=== PATIENT | male | born 1950 | race Caucasian/White ===

== ENCOUNTER 2017-09-05 10:09 | Outpatient (CLI) | payer MEDICARE ==
--- NOTE | 2017-09-05 13:33 | ULT ---
RENAL SONOGRAM: 09/05/2017 HISTORY: Acute renal insufficiency. Urinary retention. Bilateral hydronephrosis. COMPARISON: Abdominal ultrasound examination obtained at [facility] on 08/06/2017. FINDINGS: The right kidney measures 14.4 cm x 6.6 cm with the left kidney measuring 13.2 cm x 7.2 cm. There is moderate to severe bilateral hydronephrosis also noted on the prior exam. No obvious renal mass or renal calculus is seen. The urinary bladder is distended with a pre-void urinary bladder volume of 1617.9 mL and a post-void urinary bladder volume of 1561.6 mL. The montero of the urinary bladder do appear mildly thickened, wh ich may be related to a bladder outlet obstruction but cystitis is a possibility. IMPRESSION: 1. Moderate to severe bilateral hydronephrosis, also seen on prior exam. 2. Post-void residual. The urinary bladder montero also appear mildly thickened. Cystitis cannot be entirely excluded based on this exam. Findings could be related to a chronic bladder outlet obstructi on. 3. Tortuous and dilated proximal ureters; however, the entire ureters are not well visualized on thi s exam. While other etiologies for urinary obstruction are possible, given the persistence of promin ent post void residual, bladder outlet obstruction is suggested. Clinical correlation is recommended . POS: PAU
== END 2017-09-05 10:10 | disposition home or self-care (01) ==
LOC: SCSULT 10:09
PROVIDERS: ATTEND Urology
DX: N17.9 Acute kidney failure, unspecified (principal); R33.9 Retention of urine, unspecified; N13.30 Unspecified hydronephrosis; N28.89 Other specified disorders of kidney and ureter; N13.8 Other obstructive and reflux uropathy; N28.82 Megaloureter
CPT/HCPCS: 76770

== ENCOUNTER 2017-09-07 09:19 | Outpatient (CLI) | payer MEDICARE, OTHER ==
[2017-09-07 10:33] LABS: Hemoglobin 7.8 g/dL (14.0-18.0); Mean Corpuscular HGB CONC 31.6 g/dL (32.0-36.0); Mean Corpuscular Hemoglobin 24.9 pg (27.0-31.0); Mean Corpuscular Volume 78.5 fl (80.0-94.0); Mean Platelet Volume 5.6 fL (7.4-10.4); Platelet Count 681 thou/uL (130-400); RBC Distribution Width 16.8 % (11.5-14.5); Red Blood Cell (RBC) Count 3.12 mill/uL (4.70-6.10); White Blood Cell (WBC) Count 8.2 thou/uL (4.8-10.8)
[2017-09-07 10:51] LABS: Anion Gap 15 mmol/L (10-20); BUN (Urea Nitrogen) 40 mg/dL (8.4-25.7); Calc. Creatinine Clearance 0 mL/min (70-130); Calcium 9.4 mg/dL (7.8-10.44); Carbon Dioxide 25 mmol/L (23-31); Chloride 102 mmol/L (98-107); Estimated GFR-MDRD 26; Glucose 137 mg/dL (80-115); Potassium 4.9 mmol/L (3.5-5.1); Sodium 137 mmol/L (136-145)
[2017-09-07 11:01] LABS: INR-International Normal Ratio 1.2; Prothrombin Time 15.2 SEC (12.0-14.7)
[2017-09-07 11:02] LABS: PTT 34.1 SEC (22.9-36.1)
[2017-09-07 14:31] LABS: Bilirubin Negative (Negative); Blood, Urine Negative (Negative); Clarity CLOUDY (Clear); Glucose, Urine (Dipstick) Negative (Negative); Leukocyte Large (Negative); Nitrite Negative (Negative); Protein, Urine (Dipstick) Negative (Neg-Trace); Specific Gravity, Urine 1.007 (1.002-1.036); Urobilinogen 0.2 mg/dL (0.2-1.0)
[2017-09-07 14:33] LABS: Bacteria/HPF Rare-Few HPF (None Seen); Hyaline Casts/LPF 0-3 HYALINE CAST LPF (0-3 Hyaline); Pathc Cast-AUWi Flag 0.14 (0-2.49); RBC/HPF 0-3 HPF (0-3); Squamous Epithelial None Seen HPF (0-3); WBC/HPF 21-50 HPF (0-3)
== END 2017-09-07 09:20 | disposition home or self-care (01) ==
LOC: LABBT 09:19
PROVIDERS: ATTEND Urology
DX: Z01.818 Encounter for other preprocedural examination (principal); N40.1 Benign prostatic hyperplasia with lower urinary tract symptoms; R33.9 Retention of urine, unspecified
CPT/HCPCS: 80048; 81001; 85027; 85610; 85730; 86850; 86900; 86901; 87077; 87086; 87186; 93005; 93010

== ENCOUNTER 2017-10-22 10:23 | Outpatient (CLI) | payer OTHER ==
[2017-10-22 12:23] VITALS: BMI 26.2
[2017-10-22 13:04] LABS: Hemoglobin 11.1 g/dL (14.0-18.0); Mean Corpuscular HGB CONC 31.7 g/dL (32.0-36.0); Mean Corpuscular Hemoglobin 25.9 pg (27.0-31.0); Mean Platelet Volume 6.9 fL (7.4-10.4); Platelet Count 412 thou/uL (130-400); RBC Distribution Width 18.1 % (11.5-14.5); Red Blood Cell (RBC) Count 4.28 mill/uL (4.70-6.10); White Blood Cell (WBC) Count 7.7 thou/uL (4.8-10.8)
[2017-10-22 13:11] LABS: PTT 31.2 SEC (22.9-36.1)
[2017-10-22 13:25] LABS: Anion Gap 10 mmol/L (10-20); BUN (Urea Nitrogen) 37 mg/dL (8.4-25.7); Calc. Creatinine Clearance 65 mL/min (70-130); Calcium 9.5 mg/dL (7.8-10.44); Carbon Dioxide 26 mmol/L (23-31); Chloride 104 mmol/L (98-107); Estimated GFR-MDRD 46; Glucose 116 mg/dL (80-115); Potassium 4.5 mmol/L (3.5-5.1); Sodium 135 mmol/L (136-145)
[2017-10-22 13:26] LABS: INR-International Normal Ratio 1.1; Prothrombin Time 14.5 SEC (12.0-14.7)
== END 2017-10-22 10:24 | disposition home or self-care (01) ==
LOC: LABBT 10:23
PROVIDERS: ATTEND Urology
DX: Z01.818 Encounter for other preprocedural examination (principal); N40.1 Benign prostatic hyperplasia with lower urinary tract symptoms
CPT/HCPCS: 80048; 85027; 85610; 85730; 86850; 86900; 86901; 87077; 87086; 87186

== ENCOUNTER 2017-10-23 10:45 | Observation (INO) | payer OTHER ==
[~2017-10-23 10:45] MED LIST: Dexamethasone 20 MG/5 ML VIAL ONE; Lidocaine 1% PF 5 ML VIAL ONE; Metoclopramide HCl 10 MG/2 ML VIAL ONE; Ondansetron HCl/PF 4 MG/2 ML Vial ONE; PROPOFOL 200 MG/20 ML VIAL ONE; diphenhydrAMINE 50 MG/ML VIAL ONE; ePHEDrine/0.9% NaCl/PF SYRINGE 50 mg/10 ml ONE
[2017-10-23] MEDS ORDERED: Fentanyl 100 MCG/2 ML VIAL ONE (11:38)
[2017-10-23] MEDS ORDERED: cefTRIAXone\\ROCEPHIN 1 GM in Sodium Chloride 0.9% 100 ML IVPB SCH (11:45)
[2017-10-23] MEDS ORDERED: Iothalamate Meglumine 60% 50 ML VIAL FS ONE (11:56)
[2017-10-23] MEDS ORDERED: B & O ONE (11:56)
--- NOTE | 2017-10-23 15:24 | RAD ---
RETROGRADE IVP: Date: 10/23/17 HISTORY: Urinary retention. Acute kidney insufficiency. FINDINGS: Retrograde IVP submitted for interpretation. Three images demonstrate dilatation of the visualized ri ght ureter. There is moderate dilatation of the right intrarenal collecting system. There is dilatati on of the visualized left ureter. Left intrarenal collecting system is not demonstrated. IMPRESSION: Bilateral significant obstructive uropathy, incompletely evaluated. POS: COREY
[2017-10-23] MEDS ORDERED: Oxybutynin 5 MG TAB PO PRN (16:01)
[2017-10-23] MEDS ORDERED: Morphine 4 MG/ML VIAL SLOW IVP PRN ×2 (16:01)
[2017-10-23] MEDS ORDERED: Acetaminophen 500 MG TAB PO PRN (16:01)
[2017-10-23] MEDS ORDERED: Hyoscyamine Sulfate SL 0.125 mg Tablet SL PRN (16:01)
[2017-10-23] MEDS ORDERED: Ondansetron HCl/PF 4 MG/2 ML Vial IVP PRN (16:01)
[2017-10-23] MEDS ORDERED: diphenhydrAMINE 25 MG CAP PO PRN (16:01)
[2017-10-23] MEDS ORDERED: Bisacodyl 10 MG SUPP PR PRN (16:01)
[2017-10-23] MEDS ORDERED: Mag-Al 1200 mg/1200 mg/30 ML UDCUP PO PRN (16:01)
[2017-10-23] MEDS ORDERED: hydrALAZINE 20 MG/ML VIAL SLOW IVP PRN (16:01)
[2017-10-23] MEDS ORDERED: traMADol HCl 50 MG TAB PO PRN (16:04)
[2017-10-23] MEDS: Docusate 100 MG CAP PO SCH (20:31)
--- NOTE | 2017-10-23 21:11 | OP ---
DATE OF PROCEDURE: 10/23/2017 SERVICE: Urology. SURGEON: Luis Alberto Aggarwal MD PREOPERATIVE DIAGNOSES: 1. Benign prostatic hypertrophy with urinary retention. 2. Bilateral hydronephrosis. POSTOPERATIVE DIAGNOSES: 1. Benign prostatic hypertrophy with urinary retention. 2. Bilateral hydronephrosis. PROCEDURE PERFORMED: Transurethral vaporization of the prostate with bilateral retrograde pyelograms . INDICATION FOR PROCEDURE: Mr. Toledo is a 67-year-old white male who presented to [facility] with acute kidney injury with bilateral hydronephrosis and complete urinary retention only voiding small amounts of ur ine. We initially had him start CIC, which he was able to better empty his bladder. We have not fur ther evaluated his kidneys after that point and I recommended that we perform a transurethral vaporiz ation of prostate along with evaluation of the ureters to ensure that there was no obstruction. Risk s and benefits of the surgery were discussed and he has agreed to proceed forward. DESCRIPTION OF PROCEDURE: After identification of armband and verification of consent, the patient w as brought back to the operating room where he underwent general anesthesia with LMA. He was then pl aced in dorsal lithotomy position, prepped and draped in usual sterile fashion. After appropriate ti me-out, a 24-Egyptian bipolar resectoscope sheath with visual obturator was inserted through the urethr a into the patient's bladder. The visual obturator was then switched out for the button plasma elect rode. Vaporization was initially started at the bladder neck and vaporized circumferentially startin g with the median lobe first. Relaxing incisions were made at 5 and 7 on the bladder neck, which sig nificantly opened up the prostate. The intervening tissue was vaporized out. Vaporization was then carried out circumferentially down to near the capsule, but not through it until near the verumontanu m, taking care not to go beyond to avoid damage to the urethral sphincter. Both ureters were in thei r orthotopic location upon completion. Meticulous hemostasis was then performed and upon finishing, some debris was evacuated out the bladder and then the resectoscope removed. This was switched out f or a 22-Egyptian rigid cystoscope, which was then introduced back through the urethra into the bladder. Attention was turned to the right ureteral orifice, which was cannulated with a 5-Egyptian Pollack ca theter and a retrograde pyelogram performed, which demonstrated a slightly dilated distal ureter. Op acification of the mid and proximal ureter were not possible, but the opacified renal pelvis demonstr ated hydronephrosis with pelviectasis. A significant amount of contrast had to be used and it is unc lear whether or not the retrograde itself caused the hydronephrosis or whether or not this was previo usly present. The same was performed on the left side, but unfortunately no opacification of the kid glenda was possible. As such, I felt that since the retrogrades were not clear due to significant contr ast leak around the catheters, I would just get an ultrasound in the morning. Therefore, the bladder was left full and the cystoscope removed. A 22-Egyptian three-way Banegas catheter was then inserted in to the bladder with 30 mL in the balloon and CBI initiated. The patient was then taken out of lithot olga, had a 16-A B&O suppository placed in his rectum and a StatLock applied to the catheter. He was then taken to recovery. SPECIMENS: None. ESTIMATED BLOOD LOSS: Minimal. RETAINED TUBES AND DRAINS: A 22-Egyptian 3-way Banegas catheter with 30 mL of sterile water in the ballo on. DISPOSITION: The patient will be kept in the hospital overnight. We will plan for a renal ultrasoun d in the morning and repeat BMP. So long as he is able to void and his kidney function is not signif icantly deteriorated, I think he can go home with or without a Banegas catheter and further management will be handled on an outpatient basis.
[2017-10-23 22:23] VITALS: BMI 26.9
[2017-10-24 06:07] LABS: #Lymphocytes 1.8 thou/uL (1.20-3.40); #Monocytes 0.6 thou/uL (0.11-0.59); %Basophils 0.2 % (0.0-1.0); %Eosinophils 0.2 % (0.0-10.0); %Lymphocytes 14.1 % (21.0-51.0); %Monocytes 4.7 % (0.0-10.0); %Neutrophils 80.8 % (42.0-75.0); Hemoglobin 10.2 g/dL (14.0-18.0); Mean Corpuscular HGB CONC 33.2 g/dL (32.0-36.0); Mean Corpuscular Hemoglobin 27.7 pg (27.0-31.0); Mean Corpuscular Volume 83.7 fl (80.0-94.0); Mean Platelet Volume 7.3 fL (7.4-10.4); Platelet Count 327 thou/uL (130-400); RBC Distribution Width 17.9 % (11.5-14.5); Red Blood Cell (RBC) Count 3.66 mill/uL (4.70-6.10); White Blood Cell (WBC) Count 12.4 thou/uL (4.8-10.8)
[2017-10-24 06:16] LABS: Anion Gap 12 mmol/L (10-20); BUN (Urea Nitrogen) 36 mg/dL (8.4-25.7); Calc. Creatinine Clearance 61 mL/min (70-130); Calcium 9.2 mg/dL (7.8-10.44); Carbon Dioxide 26 mmol/L (23-31); Chloride 104 mmol/L (98-107); Estimated GFR-MDRD 43; Glucose 195 mg/dL (80-115); Potassium 4.5 mmol/L (3.5-5.1); Sodium 137 mmol/L (136-145)
--- NOTE | 2017-10-24 09:41 | RAD ---
ABDOMEN ONE VIEW: History: 67-year-old male with history of constipation and follow up urinary retention, hydronephrosis and saba al insufficiency to evaluate for residual contrast. FINDINGS: There is considerable solid fecal material mostly in the right and transverse colon. No evidence for significant residual contrast media within the right or left upper renal collecting systems. No overt calculus. IMPRESSION: Extensive solid fecal material. No evidence for residual contrast media within either the right or le ft upper collecting systems. POS: PAU
[2017-10-24 09:44] LABS: Iron 56 ug/dL (65-175); Iron Binding Capacity, Total 246 mcg/dL (261-462)
[2017-10-24] MEDS: Docusate 100 MG CAP PO SCH (09:56)
--- NOTE | 2017-10-24 10:32 | ULT ---
RENAL ULTRASOUND: Date: 10-24-17 Comparison: None. History: 67-year-old male undergoing evaluation for hydronephrosis, chronic urinary tract infection. Technique: Multiplanar grayscale sonographic imaging of the kidneys and urinary bladder obtained. FINDINGS: The right kidney measures 10.8 x 4.8 x 4.2 cm and the left kidney measures 10.8 x 5.0 x 6.1 cm. A 1.0 x 1.0 x 1.2 cm hypoechoic lesion is seen in the peripheral midpole of the right kidney suggesti ng a small cyst. There is a 5 x 6 mm echogenic focus within the midpole of the right kidney which may represent a small stone. The urinary bladder contains a Banegas catheter and is decompressed. There is marked wall thickening or the urinary bladder. No hydronephrosis or mass lesion seen on the left. There is a 8 mm hyperechoic focus in the midpole o f the left kidney which could represent asymmetric fat or an intrarenal calculus. IMPRESSION: 1. No hydronephrosis seen on either side. 2. Urinary bladder contains a Banegas catheter. There is severe/prominent wall thickening of the urinar y bladder, etiology uncertain. Clinical correlation is required. 3. Echogenic foci within both kidneys. POS: PAU
[2017-10-24] MEDS ORDERED: cefTRIAXone\\ROCEPHIN 1 GM in Sodium Chloride 0.9% 100 ML IVPB SCH (13:00)
[2017-10-24 16:52] VITALS: BP 181/91; TEMP 97.6
--- NOTE | 2017-10-24 19:01 | PRG ---
DATE OF SERVICE: 10/24/2017 SUBJECTIVE: The patient states he is doing well. He had no problems overnight. His CBI is now off with clear urine. He denies any bladder spasms, fevers, chills, or chest pain. OBJECTIVE: VITAL SIGNS: Temperature 99.5, pulse 91, respirations 20, blood pressure 132/70, saturation 99% on r oom air. GENERAL: No apparent distress, communicative, and alert. CARDIOVASCULAR: Regular rate and rhythm. CHEST: No increased work of breathing. ABDOMEN: Soft, nontender, nondistended. GENITOURINARY: Banegas catheter in place with CBI off with slightly blood tinged urine. EXTREMITIES: No clubbing, cyanosis, or edema. LABORATORY DATA: On laboratory evaluation, a full set of labs in the [employer] system, which I have r shonwed. Of note, the patient's hemoglobin today is 10.2 with a creatinine of 1.63. His renal ultra sound is currently pending as is his x-rays. ASSESSMENT AND PLAN: A 67-year-old white male with chronic kidney disease with acute kidney injury d ue to bilateral hydronephrosis from chronic urinary retention. He has undergone a transurethral vapo rization of the prostate, postoperative day 1, and is recovering quite well. We will perform a voidi ng trial and have him do his ultrasound and KUB. His creatinine are relatively stable. So long as starr lord is able to void, I think he can be discharged home. If he is not able to void, we will send him ho me with a catheter. Further disposition planning is also going to be based on the results of his alphonse ging testing. I have gone over all of the patient's discharge instructions with him and followup cristiana l be handled on an outpatient basis subsequently.
--- NOTE | 2017-10-25 02:07 | DIS ---
SHORT STAY DISCHARGE SUMMARY DATE OF ADMISSION: 10/23/2017 DATE OF DISCHARGE: 10/24/2017 ADMITTING DIAGNOSES: Benign prostatic hypertrophy with acute kidney injury and chronic kidney diseas e. DISCHARGE DIAGNOSES: Benign prostatic hypertrophy with chronic kidney disease. PROCEDURE PERFORMED: While inpatient is transurethral vaporization of the prostate with bilateral re trograde pyelograms, additional diagnostic studies of KUB and renal ultrasound, this can be found in the scanned portion of the [employer] system. HOSPITAL COURSE: After surgery, please see operative note for details. The patient was placed in ob servation for recovery for continuous bladder irrigation and monitoring. His retrograde pyelograms a re demonstrated some dilation of his kidneys. Therefore, we elected for an ultrasound in the morning . In the morning, the patient underwent a voiding trial with removal of the catheter in the morning time. He went down for a renal ultrasound which demonstrated no hydronephrosis and his KUB demonstra shai no retained contrast. Upon return to the floor, the patient only voided 100 mL with a PVR of [address] a catheter, but prior to the catheter placement, he voided an additional 700 w ith a PVR of 600. The patient had a catheter placed regardless and was discharged home with a cathet er in place. All of his discharge instructions were explained to him prior to discharge. DISPOSITION: Discharged to home with Banegas catheter. DISCHARGE CONDITION: Good. FOLLOWUP: Follow up will be approximately 1 week for a void trial. DISCHARGE INSTRUCTIONS: Can be found in the discharge planning of the [employer] system.
== END 2017-10-24 17:35 | disposition home or self-care (01) ==
LOC: SDC 10:45 → SJJU 17:17
PROVIDERS: ADMIT Urology; ATTEND Urology
PROC: 0V508ZZ Destruction of Prostate, Via Natural or Artificial Opening Endoscopic (ICD-10-PCS; principal; 2017-10-24)
PROC: 0TJB8ZZ Inspection of Bladder, Via Natural or Artificial Opening Endoscopic (ICD-10-PCS; 2017-10-24)
DX: N40.1 Benign prostatic hyperplasia with lower urinary tract symptoms (principal); R33.9 Retention of urine, unspecified; N13.39 Other hydronephrosis; N17.9 Acute kidney failure, unspecified; Z88.5 Allergy status to narcotic agent
CPT/HCPCS: 36415; 51702; 74018; 74420; 76770; 80048; 83540; 83550; 85025; 96365; 96375; C1758; G0378; J0360; J0696; J1100; J1200; J2001; J2405; J2704; J2765; J3010; J7050; Q9961

== ENCOUNTER 2023-07-25 11:26 | Inpatient (IN) | payer MEDICARE, OTHER ==
[~2023-07-25 11:26] MED LIST changes: -Dexamethasone 20 MG/5 ML VIAL ONE; +Iopamidol-370 76% 500 ML MDV (1 ML CHARGE) ONE; -Lidocaine 1% PF 5 ML VIAL ONE; -Metoclopramide HCl 10 MG/2 ML VIAL ONE; -Ondansetron HCl/PF 4 MG/2 ML Vial ONE; -PROPOFOL 200 MG/20 ML VIAL ONE; -diphenhydrAMINE 50 MG/ML VIAL ONE; -ePHEDrine/0.9% NaCl/PF SYRINGE 50 mg/10 ml ONE
[2023-07-25 11:53] LABS: #Eosinphils 0.1 thou/uL (0.0-0.7); #Monocytes 0.5 thou/uL (0.11-0.59); #Neutrophils 8.1 thou/uL (1.40-6.50); %Basophils 0.3 % (0.0-1.0); %Eosinophils 0.5 % (0.0-10.0); %Lymphocytes 13.5 % (21.0-51.0); %Monocytes 5.2 % (0.0-10.0); %Neutrophils 80.1 % (42.0-75.0); Hematocrit 43.4 % (42.0-52.0); Hemoglobin 14.4 g/dL (14.0-18.0); Mean Corpuscular HGB CONC 33.2 g/dL (32.0-36.0); Mean Corpuscular Hemoglobin 28.6 pg (27.0-31.0); Mean Corpuscular Volume 86.3 fl (78.0-98.0); Mean Platelet Volume 9.4 fL (7.4-10.4); Platelet Count 267 10x3/uL (130-400); RBC Distribution Width 13.5 % (11.5-14.5); Red Blood Cell (RBC) Count 5.03 mill/uL (4.70-6.10); White Blood Cell (WBC) Count 10.2 10x3/uL (4.8-10.8)
[2023-07-25 12:11] LABS: INR-International Normal Ratio 1.7; Prothrombin Time 19.6 sec (12.0-14.7)
[2023-07-25 12:15] LABS: ALT (SGPT) 28 U/L (8-55); AST (SGOT) 21 U/L (5-34); Albumin 4.8 g/dL (3.4-4.8); Alkaline Phosphatase 76 U/L (40-110); Anion Gap 15 mmol/L (10-20); BUN (Urea Nitrogen) 24 mg/dL (8.4-25.7); Bilirubin, Total 0.5 mg/dL (0.2-1.2); Calc. Creatinine Clearance 0 mL/min (70-130); Calcium 9.9 mg/dL (7.8-10.44); Carbon Dioxide 21 mmol/L (23-31); Chloride 101 mmol/L (98-107); Estimated GFR 45; Globulin 3.3 g/dL (2.4-3.5); Glucose 230 mg/dL (83-110); Potassium 4.7 mmol/L (3.5-5.1); Protein, Total 8.1 g/dL (5.8-8.1); Sodium 132 mmol/L (136-145)
[2023-07-25] MEDS ORDERED: Acetaminophen 325 MG TAB PO PRN (13:42)
[2023-07-25] MEDS ORDERED: Ondansetron PF 4 MG/2 ML Vial IVP PRN (13:42)
[2023-07-25] MEDS ORDERED: Glucagon 1 MG/ML KIT IM PRN (13:45)
[2023-07-25] MEDS ORDERED: Dextrose 5% in Water 1,000 ML IV PRN (13:45)
[2023-07-25] MEDS ORDERED: Dextrose 50% Abboject 50 ML SYRINGE SLOW IVP PRN (13:45)
[2023-07-25] MEDS ORDERED: Lorazepam 1 MG TAB ONE (14:20)
[2023-07-25 15:26] LABS: Bilirubin Negative (Negative); Blood, Urine Negative (Negative); CAUTI Indications for Culture Pelvic or flank pain; Clarity Clear (Clear); Glucose, Urine (Dipstick) Normal (Negative); Ketone, Urine Negative (Negative); Leukocyte 250 Leu/uL (Negative); Nitrite Negative (Negative); Protein, Urine (Dipstick) Negative (Neg-Trace); RBC/HPF 0-3 HPF (0-3); Specific Gravity, Urine 1.018 (1.002-1.036); Squamous Epithelial None Seen HPF (0-3); Urobilinogen Normal mg/dL (Less than 2); WBC/HPF 21-50 HPF (0-3); pH, Urine 5.5 (5.0-9.0)
[2023-07-25 15:32] LABS: Bacteria/HPF 1+ HPF (None Seen)
[2023-07-25 15:33] LABS: Urine Culture Reflex Yes Yes
[2023-07-25] MEDS: Atorvastatin Calcium 40 MG TAB PO SCH (21:24)
[2023-07-25 23:25] VITALS: BMI 28.7
[2023-07-26 05:59] LABS: #Eosinphils 0.2 thou/uL (0.0-0.7); #Monocytes 0.5 thou/uL (0.11-0.59); %Basophils 0.4 % (0.0-1.0); %Eosinophils 2.2 % (0.0-10.0); %Lymphocytes 26.9 % (21.0-51.0); %Monocytes 6.7 % (0.0-10.0); %Neutrophils 63.5 % (42.0-75.0); Hemoglobin 13.7 g/dL (14.0-18.0); Mean Corpuscular HGB CONC 31.9 g/dL (32.0-36.0); Mean Corpuscular Volume 87.8 fl (78.0-98.0); Mean Platelet Volume 9.5 fL (7.4-10.4); Platelet Count 312 10x3/uL (130-400); RBC Distribution Width 13.9 % (11.5-14.5); White Blood Cell (WBC) Count 7.9 10x3/uL (4.8-10.8)
[2023-07-26 06:09] LABS: INR-International Normal Ratio 1.1; Prothrombin Time 14.7 sec (12.0-14.7)
[2023-07-26 06:25] LABS: Anion Gap 12 mmol/L (10-20); BUN (Urea Nitrogen) 23 mg/dL (8.4-25.7); Calc. Creatinine Clearance 64 mL/min (70-130); Calcium 9.6 mg/dL (7.8-10.44); Carbon Dioxide 27 mmol/L (23-31); Cardiac Risk 3.7 (Less than 4.5); Chloride 103 mmol/L (98-107); Cholesterol 170 mg/dl (< 200 Desired); Estimated GFR 47; Glucose 192 mg/dL (83-110); HDL Cholesterol 46 mg/dL (>60 Neg Risk); LDL Cholesterol, Calculated 98 mg/dL; Potassium 4.4 mmol/L (3.5-5.1); Sodium 138 mmol/L (136-145); Triglycerides 130 mg/dL (Less than 150)
[2023-07-26] MEDS ORDERED: Enoxaparin 40 MG (0.4 mL) SYRINGE SC SCH (09:00)
[2023-07-26] MEDS ORDERED: Glucagon 1 MG/ML KIT IM PRN (09:58)
[2023-07-26] MEDS: Aspirin 81 mg Enteric Coated Tablet PO SCH (10:02)
[2023-07-26] MEDS: HumaLOG 300 UNITS/3 ML VIAL SC PRN (17:18)
[2023-07-26] MEDS: cefTRIAXone\\ROCEPHIN 2 GM in Sodium Chloride 0.9% 100 ML IVPB SCH (17:50)
[2023-07-27 06:34] LABS: Anion Gap 13 mmol/L (10-20); BUN (Urea Nitrogen) 23 mg/dL (8.4-25.7); Calc. Creatinine Clearance 59 mL/min (70-130); Calcium 9.7 mg/dL (7.8-10.44); Carbon Dioxide 26 mmol/L (23-31); Chloride 102 mmol/L (98-107); Estimated GFR 43; Glucose 214 mg/dL (83-110); Potassium 4.3 mmol/L (3.5-5.1); Sodium 137 mmol/L (136-145)
[2023-07-27] MEDS: Clopidogrel Bisulfate 75 MG TAB PO SCH (10:00)
[2023-07-27] MEDS: Amlodipine 5 MG TAB PO SCH (15:12)
[2023-07-28] MEDS: Glimepiride 4 MG TAB PO SCH (08:17)
[2023-07-28] MEDS: metFORMIN 500 MG TAB PO SCH ×2 (08:17→17:39)
[2023-07-28] MEDS: Amlodipine 5 MG TAB PO SCH (08:17)
[2023-07-28] MEDS: HumaLOG 300 UNITS/3 ML VIAL SC PRN (21:45)
[2023-07-29] MEDS: Cefdinir 300 MG CAP PO SCH (21:38)
[2023-07-30 09:04] LABS: Anion Gap 15 mmol/L (10-20); BUN (Urea Nitrogen) 26 mg/dL (8.4-25.7); Calc. Creatinine Clearance 64 mL/min (70-130); Calcium 9.8 mg/dL (7.8-10.44); Carbon Dioxide 25 mmol/L (23-31); Chloride 101 mmol/L (98-107); Estimated GFR 47; Glucose 180 mg/dL (83-110); Potassium 4.4 mmol/L (3.5-5.1); Sodium 137 mmol/L (136-145)
[2023-07-30 19:37] VITALS: BP 179/85; TEMP 98.8
[2023-07-31] MEDS ORDERED: Enoxaparin 40 MG (0.4 mL) SYRINGE SC SCH (09:00)
== END 2023-07-30 19:47 | DRG 65 ==
LOC: ERS 11:26 → ERHOLD 13:09 → 2SW 20:19 → OBSVTOIN 07-26 09:41
PROVIDERS: ADMIT Internal Medicine; ATTEND Internal Medicine
DX: I63.232 Cerebral infarction due to unspecified occlusion or stenosis of left carotid arteries (principal); D68.9 Coagulation defect, unspecified; E87.1 Hypo-osmolality and hyponatremia; N39.0 Urinary tract infection, site not specified; N17.9 Acute kidney failure, unspecified; G81.94 Hemiplegia, unspecified affecting left nondominant side; Z79.82 Long term (current) use of aspirin; Z79.84 Long term (current) use of oral hypoglycemic drugs; Z79.899 Other long term (current) drug therapy; Z88.5 Allergy status to narcotic agent; Z90.49 Acquired absence of other specified parts of digestive tract; N18.30 Chronic kidney disease, stage 3 unspecified; I12.9 Hypertensive chronic kidney disease with stage 1 through stage 4 chronic kidney disease, or unspecified chronic kidney disease; E11.22 Type 2 diabetes mellitus with diabetic chronic kidney disease; Z79.4 Long term (current) use of insulin
CPT/HCPCS: 0042T; 36415; 36416; 70450; 70496; 70498; 70551; 71045; 80048; 80053; 80061; 81001; 83036; 84443; 85025; 85610; 85730; 87077; 87086; 87186; 93005; 93306; 93880; G0378; J0696; J1815; J3490; Q9967

== ENCOUNTER 2023-10-31 09:18 | Outpatient (CLI) | payer MEDICARE ==
[2023-10-31 10:05] LABS: Hematocrit 41.5 % (38.8-50.0); Hemoglobin 13.4 g/dL (13.5-17.5); Mean Corpuscular HGB CONC 32.3 g/dL (32.0-36.0); Mean Corpuscular Volume 86.6 fl (81.2-95.1); Mean Platelet Volume 9.1 fl (7.4-10.4); Platelet Count 352 10x3/uL (150-450); RBC Distribution Width 13.2 % (11.5-14.5); Red Blood Cell (RBC) Count 4.79 10x6/uL (4.32-5.72); White Blood Cell (WBC) Count 9.2 10x3/uL (3.5-10.5)
[2023-10-31 10:21] LABS: Anion Gap 16 mmol/L (10-20); BUN (Urea Nitrogen) 26 mg/dL (8.4-25.7); Calc. Creatinine Clearance 0 mL/min (70-130); Calcium 9.9 mg/dL (7.8-10.44); Carbon Dioxide 26 mmol/L (23-31); Chloride 101 mmol/L (98-107); Estimated GFR 56; Glucose 211 mg/dL (83-110); Potassium 4.2 mmol/L (3.5-5.1); Sodium 139 mmol/L (136-145)
== END 2023-10-31 09:19 | disposition home or self-care (01) ==
LOC: LABBT 09:18
PROVIDERS: ATTEND Thoracic Surgery (Cardiothoracic Vascular Surgery)
DX: Z01.818 Encounter for other preprocedural examination (principal); I65.22 Occlusion and stenosis of left carotid artery
CPT/HCPCS: 80048; 85027; 93005; 93010

== ENCOUNTER 2023-10-31 09:30 | Inpatient (IN) | payer MEDICARE ==
[2023-11-02] MEDS ORDERED: Heparin 5,000 UNITS/ML VIAL ONE ×2 (06:36→06:37)
[2023-11-02] MEDS ORDERED: EPINEPHrine 1 MG/ML VIAL ONE (06:36)
[2023-11-02] MEDS ORDERED: Heparin 10,000 UNITS/ 10 ML VIAL ONE ×2 (06:36→08:00)
[2023-11-02] MEDS ORDERED: Bupivacaine PF 0.5% 30 ML VIAL ONE (06:37)
[2023-11-02] MEDS ORDERED: PROPOFOL 20 ML ONE (06:51)
[2023-11-02] MEDS ORDERED: Lidocaine 2% PF 5 ML VIAL ONE (06:51)
[2023-11-02] MEDS ORDERED: Rocuronium Bromide 10 MG/ML (10ML VIAL) ONE ×2 (06:51→06:57)
[2023-11-02] MEDS ORDERED: fentaNYL PF 100 MCG/2 ML SYRINGE ONE (06:51)
[2023-11-02] MEDS ORDERED: Dexamethasone 20 MG/5 ML VIAL ONE (06:57)
[2023-11-02] MEDS ORDERED: Glycopyrrolate 0.2 MG/ML 5 ML SYRINGE ONE (06:57)
[2023-11-02] MEDS ORDERED: Ondansetron PF 4 MG/2 ML Vial ONE (06:57)
[2023-11-02] MEDS ORDERED: PHENYLEPHRINE-NS 100 MCG/ML 10 ML SYRINGE ONE (06:57)
[2023-11-02] MEDS ORDERED: NEOSTIGMINE 3 MG/3 ML SYR 3 MG/3 ML SYRINGE ONE (06:57)
[2023-11-02] MEDS ORDERED: Ondansetron ODT 4 MG TAB ONE (07:09)
[2023-11-02] MEDS ORDERED: Midazolam HCl 2 mg/2 ml Vial ONE (07:10)
[2023-11-02] MEDS ORDERED: CEFAZOLIN 2 GM VIAL ONE (07:18)
[2023-11-02] MEDS ORDERED: Sodium Chloride 0.9% 100 ML ONE (07:18)
[2023-11-02] MEDS ORDERED: SUCCINYLCHOLINE/SOD CL,ISO/PF 200 MG/10 ML SYRINGE FS ONE (07:49)
[2023-11-02] MEDS ORDERED: Protamine Sulfate 50 MG/5 ML VIAL ONE (08:00)
[2023-11-02] MEDS ORDERED: SUGAMMADEX SODIUM 200 MG/2 ML VIAL ONE (08:26)
[2023-11-02] MEDS ORDERED: Labetalol HCl 100 MG/20 ML VIAL ONE ×2 (08:39→10:16)
[2023-11-02] MEDS ORDERED: Phenylephrine 40 MG in Sodium Chloride 0.9% 250 ML 250 ML IVPB PRN (08:54)
[2023-11-02] MEDS ORDERED: Promethazine HCl 25 MG/ML VIAL IM PRN (08:54)
[2023-11-02] MEDS ORDERED: Ipratropium/Albuterol 3 ML NEB NEB PRN (08:54)
[2023-11-02] MEDS ORDERED: hydrALAZINE 20 MG/ML VIAL SLOW IVP PRN (08:54)
[2023-11-02] MEDS ORDERED: Nitroglycerin 50 MG/250 ML BOT 250 ML IVPB PRN (08:54)
[2023-11-02] MEDS ORDERED: Ondansetron PF 4 MG/2 ML Vial IVP PRN (08:54)
[2023-11-02] MEDS ORDERED: fentaNYL 50 mcg/mL 1 mL Vial SLOW IVP PRN (08:54)
[2023-11-02] MEDS: Sodium Chloride 0.9% 1,000 ML IV SCH (13:42)
[2023-11-02] MEDS: Amlodipine 5 MG TAB PO SCH (13:42)
[2023-11-02 13:44] VITALS: BMI 30.4
[2023-11-02] MEDS: Ipratropium/Albuterol 3 ML NEB NEB SCH (14:50)
[2023-11-02] MEDS: CEFAZOLIN 2 GM in Sodium Chloride 0.9% 100 ML IVPB SCH (16:15)
[2023-11-02] MEDS: traMADol HCl 50 MG TAB PO PRN (16:19)
[2023-11-02] MEDS: Acetaminophen 325 MG TAB PO PRN (20:06)
[2023-11-02] MEDS: Atorvastatin Calcium 40 MG TAB PO SCH (20:07)
[2023-11-03 08:18] VITALS: TEMP 97.5
[2023-11-03] MEDS: Clopidogrel Bisulfate 75 MG TAB PO SCH (08:20)
[2023-11-03] MEDS: Aspirin 81 mg Enteric Coated Tablet PO SCH (08:20)
[2023-11-03] MEDS: metFORMIN 500 MG TAB PO SCH (08:20)
[2023-11-03] MEDS: Glimepiride 4 MG TAB PO SCH (08:31)
== END 2023-11-03 09:42 | disposition home or self-care (01) | DRG 36 ==
LOC: SURG A 11-02 06:06 → CCU 11-02 12:24
PROVIDERS: ADMIT Thoracic Surgery (Cardiothoracic Vascular Surgery); ATTEND Thoracic Surgery (Cardiothoracic Vascular Surgery)
PROC: 037L34Z Dilation of Left Internal Carotid Artery with Drug-eluting Intraluminal Device, Percutaneous Approach (ICD-10-PCS; principal; 2023-11-02)
PROC: 3E033XZ Introduction of Vasopressor into Peripheral Vein, Percutaneous Approach (ICD-10-PCS; 2023-11-02)
DX: I65.23 Occlusion and stenosis of bilateral carotid arteries (principal); N40.1 Benign prostatic hyperplasia with lower urinary tract symptoms; R33.9 Retention of urine, unspecified; Z88.5 Allergy status to narcotic agent; Z88.1 Allergy status to other antibiotic agents; Z79.82 Long term (current) use of aspirin; Z79.84 Long term (current) use of oral hypoglycemic drugs; Z86.73 Personal history of transient ischemic attack (TIA), and cerebral infarction without residual deficits
CPT/HCPCS: 94640; C1725; C1769; C1876; C1884; J0171; J0665; J1100; J1642; J1644; J2001; J2250; J2405; J2704; J2720; J3490; J7620; Q0162